=== PATIENT | female | born 1970 | race Caucasian/White ===

== ENCOUNTER 2024-08-31 09:56 | Outpatient (CLI) | payer OTHER ==
[2024-08-31 10:20] LABS: #Basophils 0.04 10x3/uL (0.0-0.2); #Eosinophils 0.21 10x3/uL (0.0-0.5); #Monocytes 0.51 10x3/uL (0.0-1.1); #Neutrophils 4.18 10x3/uL (1.5-8.4); %Basophils 0.6 % (0.0-2.0); %Eosinophils 3.1 % (0.0-6.0); %Lymphocytes 27.5 % (18.0-47.0); %Monocytes 7.5 % (0.0-10.0); Hematocrit 42.3 % (34.9-44.5); Hemoglobin 13.9 g/dL (12.0-15.5); Mean Corpuscular HGB CONC 32.9 g/dL (32.0-36.0); Mean Corpuscular Hemoglobin 28.9 pg (27.0-33.0); Mean Corpuscular Volume 87.9 fL (81.6-98.3); Mean Platelet Volume 9.4 fL (7.4-10.4); Platelet Count 340 10x3/uL (150-450); RBC Distribution Width 12.2 % (11.5-14.5); Red Blood Cell (RBC) Count 4.81 10x6/uL (3.90-5.03); White Blood Cell (WBC) Count 6.84 10x3/uL (3.5-10.5)
[2024-08-31 10:36] LABS: ALT (SGPT) 15 U/L (Less than 34); AST (SGOT) 19 U/L (11-34); Albumin 4.3 g/dL (3.1-4.5); Alkaline Phosphatase 85 U/L (40-110); Anion Gap 10 mmol/L (10-20); BUN (Urea Nitrogen) 14 mg/dL (9.8-20.1); Bilirubin, Direct 0.2 mg/dL (0.1-0.3); Bilirubin, Total 0.4 mg/dL (0.3-1.2); Calc. Creatinine Clearance 0 mL/min (70-130); Calcium 9.5 mg/dL (7.8-10.44); Carbon Dioxide 28 mmol/L (22-29); Chloride 108 mmol/L (98-107); Estimated GFR 79; Glucose 104 mg/dL (70-105); Potassium 4.2 mmol/L (3.5-5.1); Protein, Total 7.1 g/dL (6.0-8.3); Sodium 142 mmol/L (136-145)
== END 2024-08-31 09:57 | disposition home or self-care (01) ==
LOC: CSHLAB 09:56
PROVIDERS: ATTEND Surgery
DX: Z01.818 Encounter for other preprocedural examination (principal); K80.20 Calculus of gallbladder without cholecystitis without obstruction
CPT/HCPCS: 80048; 80076; 85025; 93005; 93010